=== PATIENT | male | born 1985 | race American Indian/Alaskan Native ===

== ENCOUNTER 2017-10-18 15:58 | Emergency (ER) | payer OTHER, BC ==
[2017-10-18 15:59] VITALS: BMI 25.7
[2017-10-18 16:14] VITALS: RESP 18
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
[2017-10-18 16:45] VITALS: TEMP 98.4
[2017-10-18 17:43] VITALS: BP 118/69; PULSE 65; O2SAT 99
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
== END 2017-10-18 17:49 | disposition home or self-care (01) ==
LOC: ED 15:58
DX: S33.5XXA Sprain of ligaments of lumbar spine, initial encounter (principal); V49.49XA Driver injured in collision with other motor vehicles in traffic accident, initial encounter; Y92.410 Unspecified street and highway as the place of occurrence of the external cause